=== PATIENT | male | born 1970 | race Caucasian/White ===

== ENCOUNTER 2018-12-16 12:15 | Emergency (ER) | payer BC ==
[~2018-12-16] VITALS: Ht 188 cm; Wt 113.4 kg
[2018-12-16] MEDS ORDERED: LEXAPRO20 MG PO (12:24)
[2018-12-16] MEDS ORDERED: NORCO 7.5-3251 EACH PO (13:50)
[2018-12-16] MEDS ORDERED: KEFLEX500 MG PO (13:50)
== END 2018-12-16 14:13 | disposition home or self-care (01) ==
LOC: ED 12:15
PROC: 0XQLXZZ Repair Right Thumb, External Approach (ICD-10-PCS; principal; 2018-12-16)
DX: S61.011A Laceration without foreign body of right thumb without damage to nail, initial encounter (principal); F17.200 Nicotine dependence, unspecified, uncomplicated; Z79.899 Other long term (current) drug therapy; W26.8XXA Contact with other sharp object(s), not elsewhere classified, initial encounter
CPT/HCPCS: 12002; 73140; 90471; 90715; 99283-25